=== PATIENT | male | born 1955 | race Hispanic/Latino ===

== ENCOUNTER 2016-08-17 15:08 | Outpatient (CLI) | payer OTHER ==
--- NOTE | 2016-08-17 16:17 | XRay Report ---
CHEST 2 VIEWS INDICATION: Left-sided chest pain. COMPARISON: None similar at this institution. FINDINGS: PA and lateral chest radiographs demonstrate normal cardiomediastinal silhouette. Clear lungs. Osteopenia with mild thoracic spine degenerative spurring and dextroscoliosis apex about T9. CONCLUSION: No acute disease in the chest. Thank you for the opportunity to participate in this patient's care.
== END 2016-08-17 15:09 | disposition home or self-care (01) ==
LOC: XRAY 15:08
PROVIDERS: ATTEND Internal Medicine
DX: R07.9 Chest pain, unspecified (principal); M85.88 Other specified disorders of bone density and structure, other site; M41.84 Other forms of scoliosis, thoracic region
CPT/HCPCS: 71020

== ENCOUNTER 2018-08-21 10:27 | Outpatient (CLI) | payer OTHER ==
[2018-08-21 11:19] LABS: Hematocrit 45.3 % (35.5-45.6); Hemoglobin 15.6 gm/dl (11.8-15.2); Mean Corpuscular HGB Conc 35 % (32-34); Mean Corpuscular Volume 87 fl (84-94); Platelet Count 199 K/mm3 (140-440); Red Blood Count 5.22 M/mm3 (3.65-5.03); Red Cell Distribution Width 13.6 % (13.2-15.2)
[2018-08-21 11:38] LABS: Alanine Aminotransferase 21 units/L (7-56); Albumin 4.2 g/dL (3.9-5); BUN/Creatinine Ratio 18; Blood Urea Nitrogen 18 mg/dL (9-20); Calcium 9.4 mg/dL (8.4-10.2); Hemolysis Index 2; LDL Cholesterol,Direct 119 mg/dL (50-130)
[2018-08-21 12:02] LABS: Chol/HDL Ratio 3.97 %; HDL Cholesterol 41 mg/dL (40-59)
== END 2018-08-21 10:28 | disposition home or self-care (01) ==
LOC: LAB 10:27
PROVIDERS: ATTEND Internal Medicine
DX: Z00.01 Encounter for general adult medical examination with abnormal findings (principal); I10 Essential (primary) hypertension; E78.2 Mixed hyperlipidemia; N40.0 Benign prostatic hyperplasia without lower urinary tract symptoms
CPT/HCPCS: 36415; 80053; 80061; 82306; 82607; 83036; 84153; 84443; 85027